=== PATIENT | female | born 1990 | race Two or more races ===

== ENCOUNTER 2021-11-28 11:41 | Emergency (ER) | payer OTHER ==
[~2021-11-28] VITALS: Ht 154.9 cm; Wt 63.5 kg
== END 2021-11-28 15:50 | disposition home or self-care (01) ==
LOC: ER 11:41
DX: O26.891 Other specified pregnancy related conditions, first trimester (principal); Z3A.00 Weeks of gestation of pregnancy not specified

== ENCOUNTER 2022-02-03 16:58 | Emergency (ER) | payer OTHER ==
[~2022-02-03] VITALS: Ht 154.9 cm; Wt 61.2 kg
== END 2022-02-03 21:33 | disposition home or self-care (01) ==
LOC: ER
DX: B34.9 Viral infection, unspecified (principal); R53.81 Other malaise

== ENCOUNTER → 2022-05-11 | Emergency (ER) | payer OTHER ==
[~2022-05-11] VITALS: Ht 165.1 cm; Wt 71.7 kg
== END | disposition home or self-care (01) ==
LOC: ER 18:34
DX: O99.013 Anemia complicating pregnancy, third trimester (principal); Z3A.29 29 weeks gestation of pregnancy; J06.9 Acute upper respiratory infection, unspecified

== ENCOUNTER 2022-06-11 14:31 | Inpatient (IN) | payer OTHER ==
[~2022-06-11] VITALS: Ht 154.9 cm; Wt 72.1 kg
== END 2022-06-16 10:57 | disposition home or self-care (01) | DRG 833 ==
LOC: LDR 14:31 → OB/GYN 14:31 → LDR 15:51 → OB/GYN 06-12 13:36
PROVIDERS: ADMIT Obstetrics & Gynecology; ATTEND Obstetrics & Gynecology
PROC: 4A1HXCZ Monitoring of Products of Conception, Cardiac Rate, External Approach (ICD-10-PCS; principal; 2022-06-11)
PROC: BY4FZZZ Ultrasonography of Third Trimester, Single Fetus (ICD-10-PCS; 2022-06-11)
PROC: BU4CZZZ Ultrasonography of Uterus and Ovaries (ICD-10-PCS; 2022-06-11)
DX: O60.03 Preterm labor without delivery, third trimester (principal); Z3A.34 34 weeks gestation of pregnancy; Z20.822 Contact with and (suspected) exposure to COVID-19; O34.211 Maternal care for low transverse scar from previous cesarean delivery

== ENCOUNTER 2022-07-12 12:58 | Inpatient (IN) | payer OTHER ==
[~2022-07-12] VITALS: Ht 154.9 cm; Wt 3.2 kg
[2022-07-12] MEDS ORDERED: PRENATAL TABLE1 EAC1 PO (13:39)
[2022-07-12] MEDS ORDERED: AMPICILLIN SOD500 MG PO (13:42)
== END 2022-07-15 11:15 | disposition home or self-care (01) | DRG 785 ==
LOC: OBS/DEL 12:58 → OB/GYN 14:58 → LDR 14:58 → OB/GYN 18:50
PROVIDERS: ADMIT Obstetrics & Gynecology; ATTEND Obstetrics & Gynecology
PROC: 0UB70ZZ Excision of Bilateral Fallopian Tubes, Open Approach (ICD-10-PCS; 2022-07-12)
PROC: 4A1HXCZ Monitoring of Products of Conception, Cardiac Rate, External Approach (ICD-10-PCS; 2022-07-12)
PROC: 10D00Z1 Extraction of Products of Conception, Low, Open Approach (ICD-10-PCS; principal; 2022-07-12 16:00)
DX: O34.211 Maternal care for low transverse scar from previous cesarean delivery (principal); Z3A.38 38 weeks gestation of pregnancy; Z37.0 Single live birth; Z30.2 Encounter for sterilization; Z20.822 Contact with and (suspected) exposure to COVID-19